=== PATIENT | female | born 1995 | race Two or more races ===

== ENCOUNTER 2025-09-26 12:43 | Emergency (ER) | payer MEDICAID, OTHER ==
[~2025-09-26] VITALS: Ht 157.5 cm; Wt 68.5 kg
--- NOTE | 2025-09-26 13:29 | ED.PDOC ---
History of Present Illness(SKN HPI Comments A 29 YEAR OLD FEMALE PRESENTS TO THE ED WITH COMPLAINT OF RASH OF VAGINAL AREA. PATIENT STATES SHE USED AN EXFOLIATING SCRUB ON HER VAGINAL AREA 1 WEEK AGO AND BEGAN TO EXPERIENCE PAIN AND REDNESS TO HER VAGINAL AREA SHORTLY AFTER. PATIENT DENIES DYSURIA, HEMATURIA, FEVER, CHILLS, SHORTNESS OF BREATH, CHEST PAIN, ABDOMINAL PAIN, NAUSEA, VOMITING, HEADACHE, OR OTHER COMPLAINTS. NO OTHER SYMPTOMS OR MODIFYING FACTORS AT THIS TIME. PATIENT IS ALERT, ORIENTED X 4, AND HAS STEADY GAIT. Chief Complaint: Rash Time Seen by MD: 12:46 History of Present Illness: Nurses Notes, Medications, Allergies Allergies: Coded Allergies: Cephalexin (Verified Allergy, Unknown, 09/26/25) Iodine (Verified Allergy, Unknown, 09/26/25) Penicillins (Verified Allergy, Unknown, 09/26/25) Home Meds Active Scripts Naproxen (Naproxen) 500 Mg Tab, 500 MG PO BID, #30 TAB Prov:CARIDAD GARZA 09/26/25 Clindamycin Hcl (Clindamycin Hcl) 300 Mg Cap, 1 CAP PO TID, #30 CAP Prov:CARIDAD GARZA 09/26/25 Information Source: Patient Mode of Arrival: Ambulatory Severity: Moderate Timing: Days Duration: Since onset, Days Prehospital treatment: None Location: Other (VAGINAL REGION) Mechanism: Cosmetic Developed: Rash Occurence: Indoors Object: None Condition of Object: None Retained Foreign Body: No Wound Type: None Immunization Status of Animal: NA Tetanus: Unknown History of: None Associated Signs and Symptoms: Redness, Pain Past Medical History PAST MEDICAL HISTORY: Denies Surgical History: Denies all surgeries WINDER TENDER History: No Pertinent WINDER TENDER History Family History Family History: Reviewed,noncontributory to illness Social History Smoker: Non-Smoker Alcohol: Denies ETOH Use Drugs: Denies Drug Use Lives In: Home Constitutional: denies: chills, diaphoresis, fatigue, fever, malaise, sweats, weakness, others EENTM: denies: blurred vision, double vision, ear bleeding, ear discharge, ear drainage, ear pain, ear ringing, eye pain, eye redness, hearing loss, mouth pain, mouth swelling, nasal discharge, nose bleeding, nose congestion, nose pain, photophobia, tearing, throat pain, throat swelling, voice changes, others Respiratory: denies: cough, hemoptysis, orthopnea, SOB at rest, shortness of breath, SOB with excertion, stridor, wheezing, others Cardiovascular: denies: chest pain, dizzy spells, diaphoresis, Dyspnea on exertion, edema, irregular heart beat, left arm pain, lightheadedness, palpitations, PND, syncope, others Gastrointestinal: denies: abdomen distended, abdominal pain, blood streaked bowels, constipated, diarrhea, dysphagia, difficulty swallowing, hematemesis, melena, nausea, poor appetite, poor fluid intake, rectal bleeding, rectal pain, vomiting, others Genitourinary: denies: abnormal vagina bleeding, burning, dyspareunia, dysuria, flank pain, frequency, hematuria, incontinence, pain, , vagina discharge, urgency, others Neurological: denies: dizziness, fainting, headache, left sided numbness, left sided weakness, numbness, paresthesia, pre-existing deficit, right sided numbness, right sided weakness, seizure, speech problems, tingling, tremors, weakness, others Musculoskeletal: denies: back pain, gout, joint pain, joint swelling, muscle pain, muscle stiffness, neck pain, others Integumetry: reports: lesions, wounds, others (REDNESS AND PAIN OF VAGINAL REGION); denies: bruises, change in color, change in hair/nails, dryness, laceration, lumps, rash Allergic/Immunocompromised: denies: Difficulty Healing, Frequent Infections, Hives, Itching, others Hematologic/Lymphatic: denies: anemia, blood clots, easy bleeding, easy bruising, swollen glands, others Endocrine: denies: excessive hunger, excessive sweating, excessive thirst, excessive urination, flushing, intolerance to cold, intolerance to heat, unexplained weight gain, unexplained weight loss, others Psychiatric: denies: anxiety, bipolar disorder, depression, hopeless, panic disorder, schizophrenia, sleepless, suicidal, others All Other Systems: Reviewed and Negative Physical Exam General Appearance: No Apparent Distress, Normal HEENT: Normal ENT Inspection, PERRL/EOMI, Pharynx Normal, TMs Normal Neck: Full Range of Motion, Non-Tender, Normal, Normal Inspection Respiratory: Chest Non-Tender, Lungs Clear, No Accessory Muscle Use, No Respiratory Distress, Normal Breath Sounds Cardiovascular: No Edema, No JVD, No Murmur, No Gallop, Normal Peripheral Pulses, Regular Rate/Rhythm Breast Exam: Deferred Gastrointestinal: No Organomegaly, Non Tender, No Pulsatile Mass, Normal Bowel Sounds, Soft Genitalia: vagina lesion Pelvic: Discharge (MILD YELLOW DRAINAGE ON VAGINAL DUE TO MILD 2ND BURN ON RIGHT SIDE LABIA, 1ST BURN ON VAGINAL REGION. ), Other (MILD 1ST/2ND BURN ON VAGINAL REGION, NO BLISTERS SEEN. ) Rectal: Deferred Extremities: No calf tenderness, Normal capillary refill, Normal inspection, Normal range of motion, Non-tender, No pedal edema Musculoskeletal : Apperance: Normal Neurologic: Alert, home health travel ot II-XII nml as Tested, No Motor Deficits, Normal Affect, Normal Mood, No Sensory Deficits Cerebellar Function: Normal Reflexes: Normal Skin: Dry, Normal Color, Warm Peripheral Pulses: 2+ carotid (R), 2+ carotid (L) Lymphatic: No Adenopathy Was a procedure done? Was a procedure done?: No Differential Diagnosis (INTG) Differential Diagnosis: Atopic dermatitis, Cellulitis, Contact Dermatitis, Erysipelas, Tinea, Urticaria Differential Diagnosis: N/A Abscess: N/A Differential Diagnosis: N/A X-Ray, Labs, Meds, VS Vital Signs Date Time Temp Pulse Resp B/P (MAP) Pulse Ox O2 Delivery O2 Flow Rate FiO2 09/26/25 13:38 99.1 62 17 112/76 (88) 95 99.1 09/26/25 12:50 98.4 82 14 136/90 95 98.4 Current Medications Medications (Trade) Dose Ordered Sig/Shakir Route Start Time Stop Time Status Last Admin Clindamycin Phosphate 50 ml @ 50 mls/hr ONCE ONCE IV 09/26/25 13:30 09/26/25 14:29 DC 09/26/25 13:43 Ketorolac Tromethamine (Toradol Injection) 30 mg ONCE ONCE IV 09/26/25 13:30 09/26/25 13:31 DC 09/26/25 13:43 X-Ray, Labs, Meds, VS Comment EXTERNAL MEDICAL RECORDS REVIEWED: [NONE] INDEPENDENT HISTORIANS: [NONE] SOCIAL DETERMINANTS OF HEALTH: [NONE] LABS ORDERED: NONE REVIEWED AND INTERPRETED RESULTS: NONE IMAGING ORDERED: NONE TREATMENTS ORDERED: CLINDAMYCIN 900 MG IV AND TORADOL 30 MG IV PROCEDURES PERFORMED: NONE CRITICAL CARE TIME: NONE I HAVE DISCUSSED THE PATIENT WITH THE ATTENDING PHYSICIAN [PHYSICIAN'S NAME] AND HE AGREES WITH THE PATIENT'S PLAN OF CARE AND DISPOSITION. BASED ON HISTORY OF PRESENT ILLNESS, AND PHYSICAL EXAM, PATIENT WILL BE DISCHARGED HOME. DISCUSSED PLAN FOR DISCHARGE HOME WITH RX [CLINDAMYCIN AND NAPROXEN 500 MG]. MEDICATION WARNINGS GIVEN. SHARED DECISION MAKING: DISCUSSED WITH PATIENT THAT THEIR WORKUP WAS NORMAL. PATIENT INSTRUCTED TO FOLLOW UP WITH PRIMARY CARE PROVIDER IN 1-2 DAYS FOR RE- EVALUATION OF SYMPTOMS. PATIENT VERBALIZES UNDERSTANDING TO RETURN TO ED FOR NEW OR WORSENING SYMPTOMS OR IF FOLLOW UP WITH PCP CANNOT BE OBTAINED. PATIENT FEELS COMFORTABLE GOING HOME AT THIS TIME. ALL QUESTIONS ADDRESSED AT TIME OF DISCHARGE. Time of 1ST Reevaluation: 14:50 Reevaluation 1ST: Improved Patient Education/Counseling: Diagnosis, Treatment, Need For Follow Up Family Education/Counseling: Diagnosis, Treatment, Need For Follow Up Medical Screening: No EMC Exist At This Time SEPSIS Sepsis Screen Date sepsis recognized/suspect: Sep 26, 2025 Time Sepsis recognized/suspect: 1253 Recent Procedure: No On Antibiotic Therapy: No Respiratory Rate >20: No Heart Rate >90: No Temp<36 C (96.8 F) or >38.3 C: No SBP <90 or MAP <65 mmHG: No New Acute Mental Status Change: No Is the patient on CPAP, BIPAP,: No Physician Orders Heplock Iv (09/26/25 ) Vital Signs Date Time Temp Pulse Resp B/P (MAP) Pulse Ox O2 Delivery O2 Flow Rate FiO2 09/26/25 13:38 99.1 62 17 112/76 (88) 95 99.1 09/26/25 12:50 98.4 82 14 136/90 95 98.4 Medications Medications Dose Ordered Sig/Shakir Route Start Time Stop Time Status Last Admin Dose Admin Clindamycin Phosphate 50 ml @ 50 mls/hr ONCE ONCE IV 09/26/25 13:30 09/26/25 14:29 DC 09/26/25 13:43 Ketorolac Tromethamine 30 mg ONCE ONCE IV 09/26/25 13:30 09/26/25 13:31 DC 09/26/25 13:43 Departure 1 Departure Time of Disposition: 14:50 Impression: Primary Impression: Second degree burn Additional Impressions: First degree burn of vulva Qualified Codes: T21.17XA - Burn of first degree of female genital region, initial encounter Suspected soft tissue infection Disposition: HOME / SELF CARE / HOMELESS Condition: Stable Additional Instructions: FOLLOW-UP WITH PCP IN 1 TO 2 DAYS. TAKE MEDICATIONS PRESCRIBED. RETURN TO E D FOR ANY NEW OR WORSENING SYMPTOMS. e-Prescriptions Naproxen (Naproxen) 500 Mg Tab 500 MG PO BID, #30 TAB Prov: CARIDAD GARZA 09/26/25 Clindamycin Hcl (Clindamycin Hcl) 300 Mg Cap 1 CAP PO TID, #30 CAP Prov: CARIDAD GARZA 09/26/25 Discharged With: Self Critical Care Note Critical Care Time?: No Stability Stability form required: No I personally scribed for CARIDAD GARZA ([email or web address]) on 09/26/25 at 13:29. Electronically submitted by Isidro Bergeron ([email or web address]). I personally scribed for CARIDAD GARZA ([email or web address]) on 09/26/25 at 14:36. Electronically submitted by Isidro Bergeron ([email or web address]). CARIDAD GARZA Sep 26, 2025 13:29
[2025-09-26 13:38] VITALS: BP 112/76; PULSE 62; RESP 17; TEMP 99.1; O2SAT 95
[2025-09-26] MEDS: KETOROLAC TROMETH 30 MG/ML 1ML VIAL IV ONE (13:43)
[2025-09-26] MEDS: CLINDAMYCIN 900MG IV 50 ML IV ONE (13:43)
[2025-09-26] MEDS ORDERED: NAPR-746 PO (14:35)
[2025-09-26] MEDS ORDERED: CLIN1CAP70 PO (14:35)
== END 2025-09-26 14:38 | disposition home or self-care (01) ==
LOC: ER 12:43
DX: T21.27XA Burn of second degree of female genital region, initial encounter (principal); T21.17XA Burn of first degree of female genital region, initial encounter; Z88.1 Allergy status to other antibiotic agents; Z88.0 Allergy status to penicillin; X08.8XXA Exposure to other specified smoke, fire and flames, initial encounter; Y93.89 Activity, other specified; Y92.89 Other specified places as the place of occurrence of the external cause; Y99.8 Other external cause status
CPT/HCPCS: 96365; 96375; 99284; J1885; J3490

== ENCOUNTER 2025-09-30 21:18 | Emergency (ER) | payer MEDICAID ==
[~2025-09-30] VITALS: Ht 157.5 cm; Wt 71.6 kg
[~2025-09-30 21:18] MED LIST: CLIN1CAP70 PO; NAPR-746 PO
--- NOTE | 2025-09-30 22:17 | ED.PDOC ---
History of Present Illness(SKN HPI Comments This is a 29 year old female presenting to the ED with chief complaint of vaginal wound check. Patient reports that about 10 days ago she had applied an exfoliating scrub to her genital region, causing mcbride to her vaginal region. Patient relays that she was seen on 09/26/25 for the same complaint and had received Clindamycin and Naproxen prescription with minimal relief in symptoms noted. Patient states she has been experiencing blistering to the region with associated dry and cracked skin worsening and reopening the wounds. Patient notes it has been severely painful to walk and urinate due to the lesions. Patient denies any fever, hematuria, chills, or vaginal discharge. Chief Complaint: Wound Check Time Seen by MD: 22:04 History of Present Illness: Nurses Notes, Medications, Allergies Allergies: Coded Allergies: Cephalexin (Verified Allergy, Unknown, 09/26/25) Iodine (Verified Allergy, Unknown, 09/26/25) Penicillins (Verified Allergy, Unknown, 09/26/25) Home Meds Active Scripts Naproxen (Naproxen) 500 Mg Tab, 500 MG PO BID, #30 TAB Prov:CARIDAD GARZA 09/26/25 Clindamycin Hcl (Clindamycin Hcl) 300 Mg Cap, 1 CAP PO TID, #30 CAP Prov:CARIDAD GARZA 09/26/25 Information Source: Patient Mode of Arrival: Ambulatory Severity: Moderate Timing: Days Duration: Since onset Prehospital treatment: Other (Antibiotics) Location: Other (Vagina) Mechanism: Cosmetic (Exfoliation scrub) Developed: Rash Wound Type: Abrasion, Other Past Medical History PAST MEDICAL HISTORY: Denies Surgical History: Denies all surgeries ENGINE TEST CELL TECHNICIAN History: No Pertinent ENGINE TEST CELL TECHNICIAN History Family History Family History: Reviewed,noncontributory to illness Social History Smoker: Non-Smoker Alcohol: Denies ETOH Use Drugs: Denies Drug Use Lives In: Home Constitutional: denies: chills, diaphoresis, fatigue, fever, malaise, sweats, weakness, others EENTM: denies: blurred vision, double vision, ear bleeding, ear discharge, ear drainage, ear pain, ear ringing, eye pain, eye redness, hearing loss, mouth pain, mouth swelling, nasal discharge, nose bleeding, nose congestion, nose pain, photophobia, tearing, throat pain, throat swelling, voice changes, others Respiratory: denies: cough, hemoptysis, orthopnea, SOB at rest, shortness of breath, SOB with excertion, stridor, wheezing, others Cardiovascular: denies: chest pain, dizzy spells, diaphoresis, Dyspnea on exertion, edema, irregular heart beat, left arm pain, lightheadedness, palpitations, PND, syncope, others Gastrointestinal: denies: abdomen distended, abdominal pain, blood streaked bowels, constipated, diarrhea, dysphagia, difficulty swallowing, hematemesis, melena, nausea, poor appetite, poor fluid intake, rectal bleeding, rectal pain, vomiting, others Genitourinary: reports: others (Vaginal wounds/lesions); denies: abnormal vagina bleeding, burning, dyspareunia, dysuria, flank pain, frequency, hematuria, incontinence, pain, , vagina discharge, urgency Neurological: denies: dizziness, fainting, headache, left sided numbness, left sided weakness, numbness, paresthesia, pre-existing deficit, right sided numbness, right sided weakness, seizure, speech problems, tingling, tremors, weakness, others Musculoskeletal: denies: back pain, gout, joint pain, joint swelling, muscle pain, muscle stiffness, neck pain, others Integumetry: denies: bruises, change in color, change in hair/nails, dryness, laceration, lesions, lumps, rash, wounds, others Allergic/Immunocompromised: denies: Difficulty Healing, Frequent Infections, Hives, Itching, others Hematologic/Lymphatic: denies: anemia, blood clots, easy bleeding, easy bruising, swollen glands, others Endocrine: denies: excessive hunger, excessive sweating, excessive thirst, excessive urination, flushing, intolerance to cold, intolerance to heat, unexplained weight gain, unexplained weight loss, others Psychiatric: denies: anxiety, bipolar disorder, depression, hopeless, panic disorder, schizophrenia, sleepless, suicidal, others All Other Systems: Reviewed and Negative Physical Exam General Appearance: No Apparent Distress, Normal HEENT: Normal ENT Inspection, Pharynx Normal, TMs Normal Neck: Full Range of Motion, Non-Tender, Normal, Normal Inspection Respiratory: Chest Non-Tender, Lungs Clear, No Accessory Muscle Use, No Respiratory Distress, Normal Breath Sounds Cardiovascular: No Edema, No JVD, No Murmur, No Gallop, Normal Peripheral Pulses, Regular Rate/Rhythm Breast Exam: Deferred Gastrointestinal: No Organomegaly, Non Tender, No Pulsatile Mass, Normal Bowel Sounds, Soft Genitalia: Other (Ulcerations to bilateral labia with dry and crusting lesions. Per phone photo taken today by patient, physicam exam deferred.), Deferred Pelvic: Deferred Rectal: Deferred Extremities: No calf tenderness, Normal capillary refill, Normal inspection, Normal range of motion, Non-tender, No pedal edema Musculoskeletal : Apperance: Normal Neurologic: Alert, amortization clerk II-XII nml as Tested, No Motor Deficits, Normal Affect, Normal Mood, No Sensory Deficits Cerebellar Function: Normal Reflexes: Normal Skin: Dry, Normal Color, Warm Lymphatic: No Adenopathy Was a procedure done? Was a procedure done?: No Differential Diagnosis (INTG) Differential Diagnosis: Cellulitis, Contusion X-Ray, Labs, Meds, VS Vital Signs Date Time Temp Pulse Resp B/P (MAP) Pulse Ox O2 Delivery O2 Flow Rate FiO2 09/30/25 21:22 98.4 76 19 119/77 95 98.4 X-Ray, Labs, Meds, VS Comment Spoke with EMANUEL Rabago on-call, she concurred with the recommendation of keeping area mildly moisturize, patient may use Aquaphor or even products for diaper rash. Patient is sent home with [facility] for pain control at nighttime. Time of 1ST Reevaluation: 22:34 Reevaluation 1ST: Unchanged Patient Education/Counseling: Diagnosis, Treatment, Need For Follow Up (Follow up with PCP next available appointment. Return emergency department if symptoms worsen.) Family Education/Counseling: No Family Present SEPSIS Sepsis Screen Date sepsis recognized/suspect: Sep 30, 2025 Time Sepsis recognized/suspect: 2127 Recent Procedure: No On Antibiotic Therapy: Yes Respiratory Rate >20: No Heart Rate >90: No Temp<36 C (96.8 F) or >38.3 C: No SBP <90 or MAP <65 mmHG: No New Acute Mental Status Change: No Is the patient on CPAP, BIPAP,: No Vital Signs Date Time Temp Pulse Resp B/P (MAP) Pulse Ox O2 Delivery O2 Flow Rate FiO2 09/30/25 21:22 98.4 76 19 119/77 95 98.4 Departure 1 Departure Time of Disposition: 22:19 Impression: Primary Impression: First degree burn of vulva Qualified Codes: T21.17XD - Burn of first degree of female genital region, subsequent encounter Disposition: HOME / SELF CARE / HOMELESS Condition: Stable Referrals: OBSTETRICS/GYNECOLOGY Additional Instructions: Mcbride to vaginal area e-Prescriptions Hydrocodone-Acetaminophen (Hydrocodone Bitartrate/AC 5-325 mg) 1 Tab Tab 1 TAB PO BID PRN, #15 TAB Prov: JUNE GARNER 09/30/25 Discharged With: Self Critical Care Note Critical Care Time?: No Stability Stability form required: No Heart Score Heart Score: Heart Score Response (Comments) Value History N/A 0 EKG N/A 0 Age N/A 0 Risk Factors N/A 0 Troponin N/A 0 Total 0 I personally scribed for JUNE GARNER ([email or web address]) on 09/30/25 at 22:16. Electronically submitted by Lloyd Alvarado ([email or web address]). JUNE GARNER Sep 30, 2025 22:16
[2025-09-30] MEDS ORDERED: HYDR-4902 PO (22:22)
[2025-09-30 23:21] VITALS: BP 120/75; PULSE 74; RESP 16; TEMP 98.4; O2SAT 97
== END 2025-09-30 23:29 | disposition home or self-care (01) ==
LOC: ER 21:18
DX: T21.17XA Burn of first degree of female genital region, initial encounter (principal); Z79.899 Other long term (current) drug therapy; Z88.8 Allergy status to other drugs, medicaments and biological substances; Z88.1 Allergy status to other antibiotic agents; Z88.0 Allergy status to penicillin; X08.8XXA Exposure to other specified smoke, fire and flames, initial encounter; Y93.89 Activity, other specified; Y92.89 Other specified places as the place of occurrence of the external cause; Y99.8 Other external cause status